=== PATIENT | male | born 1950 | race Caucasian/White ===

== ENCOUNTER 2018-05-04 10:56 | Day surgery (SDC) | payer OTHER ==
--- NOTE | 2018-04-14 12:16 | HP ---
DATE OF ADMISSION: 05/04/2018 Patient to be admitted to the [facility] [place]. 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 Patient had been initially evaluated by our practice in 2014. At that time, he presented with a 1.5 to 2 cm mass of 4 years duration. Patient now with the mass at least 9 years' time, which has progressively increased in size and which is now associated with discomfort, particularly when trying to sleep face up. Patient states he had no prior discomfort before, but the discomfort now has become bothersome and he would like to move in the direction of excision of the mass. Patient had been advised MRI evaluation in the past but that apparently that was completed. Patient's past medical history is significant for hypertension and hypercholesterolemia. No known history of heart disease; diabetes; respiratory, renal or hepatic insufficiency. PAST SURGICAL HISTORY: Nil. ALLERGIES: None known. Regular medications include anticholesterolemics as well as a baby aspirin. SOCIAL HISTORY: Positive tobacco, approximately half a pack per day. Negative alcohol. FAMILY HISTORY: Nil. REVIEW OF SYSTEMS: Nil. PHYSICAL EXAMINATION: On examination, the patient has a large palpable mass overlying his occiput, measuring approximately 4 x 5 cm in size. The mass does appear to be fixed in its deeper plane. There are no satellite lesions or regional lymphadenopathy. IMPRESSION: Longstanding progressively enlarging soft tissue mass of the posterior scalp overlying the occipital region, etiology of the mass unknown. PLAN: Suggested the patient complete an MRI with and without IV contrast preoperatively. Would subsequently move in the direction of surgical excision. Roland WHITNEY/[id number] CC: Roland Parada
[2018-04-29 10:30] VITALS: BMI 27.3
[2018-05-04] MEDS ORDERED: SUCCINYLCHOLINE CHLORIDE 200 MG/10 ML VIAL ONE (12:00)
[2018-05-04] MEDS ORDERED: PROPOFOL 20 ML ONE (12:00)
[2018-05-04] MEDS ORDERED: DEXAMETHASONE SOD PHOSPHATE 4 MG/1 ML VIAL ONE (13:00)
[2018-05-04] MEDS ORDERED: ePHEDrine SULFATE 50 MG/1 ML AMPULE ONE (13:00)
[2018-05-04] MEDS ORDERED: ONDANSETRON 4 MG/2 ML VIAL ONE (13:00)
[2018-05-04] MEDS ORDERED: LIDOCAINE 1%/EPI 1:100000 (20 ML MULTI DOSE VIAL) ONE (13:38)
[2018-05-04] MEDS ORDERED: oxyCODONE HCL 5 MG TABLET PO PRN (14:16)
[2018-05-04] MEDS ORDERED: ACETAMINOPHEN 325 MG TABLET (FP) PO PRN (14:16)
[2018-05-04] MEDS ORDERED: ONDANSETRON 4 MG/2 ML VIAL IVPUSH PRN (14:16)
[2018-05-04] MEDS ORDERED: LACTATED RINGERS SOLUTION 1,000 ML IV SCH (14:30)
[2018-05-04 15:16] VITALS: PULSE 82; TEMP 97.8
[2018-05-04 15:44] VITALS: BP 136/72
--- NOTE | 2018-05-05 09:41 | OP ---
DATE OF OPERATION: 05/04/2018 PREOPERATIVE DIAGNOSIS: Posterior scalp mass. 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 PROCEDURE: Excision of posterior subfascial lipomatous neoplasia/intermediate wound closure (5 cm). OPERATING SURGEON: Kalyan Ying MD HEAD ATHLETIC TRAINER/STRENGTH COACH: None. ANESTHESIA: General. ANESTHESIOLOGIST: Claude Gutierrez DO HISTORY: This 68-year-old man has had a rather longstanding progressively enlarging soft tissue mass of the posterior scalp in the midline for the past 9 years or so. It was ultimately decided to move in the direction of excision, as it has become progressively more uncomfortable for him to sleep face-up. Indications, alternatives, possible complications were reviewed. Consent obtained. DESCRIPTION OF PROCEDURE: After general endotracheal intubation, patient was placed in the prone position, the neck was flexed. The posterior aspect of the scalp was prepped with chlorhexidine. A 5-cm transverse incision was made directly over the mass and deepened into the subcutaneous space. Deep to the subcutaneous space of the fascia at the underlying musculature was incised, and a well-encapsulated lipomatous neoplasia was encountered. Using sharp dissection, it was dissected free from its bed. It was ultimately delivered. After irrigation and adequate hemostasis, the wound was closed in layers. Deep fascial layer was approximated using interrupted 2-0 Vicryl sutures. The subcutaneous tissues were approximated using interrupted 3-0 Vicryl sutures. The subcuticular layer was approximated using interrupted 4-0 Vicryl sutures. The skin edges were ultimately closed using a continuous 4-0 nylon suture. Prior to complete closure, 10 mL of 1% lidocaine with epinephrine was freely instilled in the wound. Dermabond applied, dressing applied, procedure terminated. NEEDLE AND INSTRUMENT COUNTS: Correct. ESTIMATED BLOOD LOSS: Minimal. SPECIMENS: Posterior scalp lipomatous neoplasia. DRAINS: None. Patient tolerated the procedure. The procedure was terminated. Roland WHITNEY/[id number] cc: Charli Pierce MD
--- NOTE | 2018-05-06 16:35 | PATH ---
Surgical Pathology Report Patient Name: KAVON GIRALDO Med. Rec. #: [id number] /Age/Gender: 1950 (Age: 68) / M Account: [id number] Location: [facility] Taken: 05/04/2018 Received: 05/04/2018 Reported: 05/06/2018 Physicians: Kalyan Ying M.D. Specimen(s) Received POSTERIOR SCALP LIPOMATOUS NEOPLASM Clinical History Benign neoplasm of left scalp Final Diagnosis POSTERIOR SCALP, LIPOMATOUS NEOPLASM, EXCISION: MATURE FIBROADIPOSE TISSUE CONSISTENT WITH LIPOMA. Electronically Signed Tuyet Fung M.D. Gross Description Received in formalin labeled "posterior scalp lipomatous neoplasm," is a 4.3 x 2.5 x 2.1 cm portion of yellow, lobulated adipose tissue. Sectioning reveals homogeneous yellow parenchyma. Boxcar Weigher sections are submitted in 3 cassettes. /05/05/2018 saudi/05/05/2018
== END 2018-05-04 15:45 | disposition home or self-care (01) ==
LOC: FASU 10:56
PROVIDERS: ATTEND Surgery
PROC: 0JB00ZZ Excision of Scalp Subcutaneous Tissue and Fascia, Open Approach (ICD-10-PCS; principal; 2018-05-04 12:59)
DX: D21.0 Benign neoplasm of connective and other soft tissue of head, face and neck (principal)
CPT/HCPCS: 88304-TC; 94760